=== PATIENT | female | born 1945 | race Caucasian/White ===

== ENCOUNTER 2019-01-30 11:14 | Emergency (ER) | payer MEDICARE ==
[~2019-01-30] VITALS: Ht 167.6 cm; Wt 81.0 kg
[2019-01-30] MEDS ORDERED: LOSA50TA88 (11:34)
[2019-01-30] MEDS ORDERED: ASPI81TA85 PO (11:34)
[2019-01-30] MEDS ORDERED: HYDR25TAB (11:34)
[2019-01-30] MEDS ORDERED: SIMV10TA2 (11:34)
[2019-01-30 12:31] VITALS: BP 152/94
--- NOTE | 2019-01-30 14:20 | REP ---
CT Head without contrast HISTORY: Trauma COMPARISON: None There is no intraparenchymal hemorrhage, acute infarct, mass or midline shift. The ventricular system is normal in appearance. There is no extra cerebral collection. There is no fracture. 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 The visualized sinuses are clear. IMPRESSION: There is no intracranial lesion. Electronically Signed by Red Dey MD 01/30/2019 02:11 P
--- NOTE | 2019-01-30 14:26 | REP ---
CT cervical spine without contrast HISTORY: Trauma COMPARISON: None There is no acute fracture or subluxation. Disc bulges are present at the C2-3 and C4-5 levels. Disc bulges with associated osteophyte formation are present at the C3-4 and C5-6 levels. There is minimal narrowing of the spinal canal. Uncinate process and/or facet hypertrophy are present at the C2-3 through C6-7 levels. These findings produce minimal to mild narrowing of the neural foramina. The C3-4 through C6-7 intervertebral discs are decreased in height consistent with disc degeneration. There are 2 mm of anterior subluxation of C6 on 7. 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 IMPRESSION: 1. There is no acute fracture or subluxation. 2. There is cervical spondylosis at the C2-3 through C6-7 levels. Electronically Signed by Red Dey MD 01/30/2019 02:17 P
--- NOTE | 2019-01-30 14:51 | REP ---
RIGHT SHOULDER, COMPLETE: 01/30/2019. Clinical history: Trauma, patient fell last evening. Right shoulder and lower arm pain. States she had rotator cuff surgery 4 months ago. Findings: No prior study. AC joint shows no widening or elevation of the clavicle in relationship to the acromion, only minimal acromial spur. No clavicular fracture, ribs and scapula fracture. Humeral head without subluxation or dislocation. There is no visible or displaced fracture, avulsion or abnormal soft-tissue calcification. Impression: 1. Some minor degenerative changes about the shoulder but no visible or displaced fracture, avulsion, abnormal soft-tissue calcification, subluxation or other acute finding. Electronically Signed by Claude Soto MD 01/30/2019 09:55 P
--- NOTE | 2019-01-30 14:52 | REP ---
RIGHT FOREARM: 01/30/2019. Clinical history: Trauma, patient fell last evening. Forearm pain. Two views of the forearm show radius, ulna and articulations without fracture, subluxation or dislocation. Minor degenerative changes at the wrist and elbow. No avulsion, radiopaque foreign body or other acute bony finding. Impression: 1. Some degenerative changes at the wrist and elbow without visible or displaced fracture, avulsion or other acute bony finding of the forearm. Electronically Signed by Claude Soto MD 01/30/2019 09:55 P
--- NOTE | 2019-01-30 15:04 | REP ---
RIGHT WRIST, FOUR VIEWS: HISTORY: Trauma. There is no acute fracture or dislocation. There is narrowing of the 1st carpometacarpal joint space with associate osteophyte formation. The bony structure is osteopenic. IMPRESSION: There is no acute fracture or dislocation. Electronically Signed by Red Dey MD 01/30/2019 03:11 P
== END 2019-01-30 15:22 | disposition home or self-care (01) ==
LOC: M ED 11:14
DX: S43.401A Unspecified sprain of right shoulder joint, initial encounter (principal); W00.0XXA Fall on same level due to ice and snow, initial encounter; Y92.018 Other place in single-family (private) house as the place of occurrence of the external cause; I10 Essential (primary) hypertension; Z79.899 Other long term (current) drug therapy; Z79.82 Long term (current) use of aspirin; Z88.5 Allergy status to narcotic agent
CPT/HCPCS: 70450; 72125; 73030; 73090; 73110; 99283; G0463

== ENCOUNTER → 2020-10-14 | Outpatient (CLI) | payer MEDICARE ==
[~2020-10-14] MED LIST: ASPI81TA86 PO; HYDR25TAB; LOSA50TA88; SIMV10TA21
--- NOTE | 2020-10-14 09:58 | REP ---
INDICATION: OSEOARTHRITIS RIGHT KNEE- ALSO LABS AND EKG COMPARISON: None. TECHNIQUE: PA and lateral. FINDINGS: The mediastinum and cardiac silhouette are normal. The lung antonio demonstrate suspected biapical scarring (right greater than left). No acute consolidation, effusion, or pneumothorax. Surgical clips identified within the right breast. The skeletal structures are intact and degenerative changes to the right shoulder noted. IMPRESSION: No acute cardiopulmonary process. As above. <Electronically signed by Edis Arevalo > 10/14/20 0933
[2020-10-14 10:00] LABS: HEMOGLOBIN 13.1 g/dl (12.0-15.5); MEAN CORPUSCULAR HEMOGLOBIN 27.7 pg (27.0-33.0); MEAN CORPUSCULAR VOLUME 86.7 fl (80.0-96.0); PLATELET COUNT, AUTOMATED 356 10^3/uL (150-450); RED BLOOD COUNT 4.73 10^6/uL (4.00-5.40); WHITE BLOOD COUNT 6.9 10^3/uL (4.0-10.0)
[2020-10-14 10:12] LABS: INR 0.9; PROTHROMBIN TIME 12.3 SECONDS (12.5-14.3)
[2020-10-14 10:42] LABS: ERYTHROCYTE SEDIMENTATION RATE 20 mm/hr (0-30)
[2020-10-14 11:05] LABS: ALBUMIN 3.8 GM/DL (3.2-5.2); ALT/SGPT 17 U/L (12-78); BILIRUBIN,TOTAL 0.4 MG/DL (0.2-1.0); BLOOD UREA NITROGEN 21 MG/DL (7-18); CALCIUM LEVEL 9.8 MG/DL (8.8-10.2); CARBON DIOXIDE LEVEL 27 MEQ/L (21-32); CHLORIDE LEVEL 104 MEQ/L (98-107); CREATININE FOR GFR 0.74 MG/DL (0.55-1.30); GLOMERULAR FILTRATION RATE > 60.0 (>39); GLUCOSE, FASTING 86 MG/DL (70-100); POTASSIUM SERUM 4.1 MEQ/L (3.5-5.1); SODIUM LEVEL 139 MEQ/L (136-145); TOTAL PROTEIN 7.2 GM/DL (6.4-8.2)
--- NOTE | 2020-10-14 19:30 | ECGEPIP ---
[facility] Test Date: 2020-10-14 Pat Name: KATERINA GONZALEZ Department: Room: - Gender: Female Lead C Developer: RAMÓN : 1945 Requested By: Roberta Yost Order Number: [id number] Reading MD: Melisa Condon Measurements Intervals [place] Rate: 67 P: 67 ME: 182 QRS: 58 QRSD: 90 T: 33 QT: 409 QTc: 433 Interpretive Statements SINUS RHYTHM MODERATE VOLTAGE CRITERIA FOR LVH, CONSIDER NORMAL VARIANT NONSPECIFIC T-WAVE ABNORMALITY NO PRIOR Electronically Signed on 10-14-2020 19:30:08 EST by Melisa Condon
== END ==
LOC: M LAB 08:41
PROVIDERS: ATTEND Orthopaedic Surgery
DX: Z01.818 Encounter for other preprocedural examination (principal); M17.11 Unilateral primary osteoarthritis, right knee; R94.31 Abnormal electrocardiogram [ECG] [EKG]; Z88.3 Allergy status to other anti-infective agents; Z88.5 Allergy status to narcotic agent; Z88.8 Allergy status to other drugs, medicaments and biological substances

== ENCOUNTER → 2020-11-06 | Outpatient (CLI) | payer MEDICARE ==
[~2020-11-06] MED LIST changes: +ASPI81CH33 PO; +CALC600T60 PO; +ECOT81TA5 PO; -HYDR25TAB; +HYDR25TAB PO; -LOSA50TA88; +LOSA50TA88 PO; +PERC5TAB12 PO; -SIMV10TA21; +SIMV10TA21 PO; +VITA-55 PO; +VITAD400CA PO
== END ==
LOC: M LABSMTC 09:57
PROVIDERS: ATTEND Anesthesiology
DX: Z11.59 Encounter for screening for other viral diseases (principal)

== ENCOUNTER 2020-11-11 07:05 | Inpatient (IN) | payer MEDICARE ==
--- NOTE | 2020-11-10 10:59 | HPE ---
HISTORY AND PHYSICAL DATE OF ADMISSION: 11/11/2020 ATTENDING PHYSICIAN: Dr. Howe. CHIEF COMPLAINT: Right knee pain and stiffness. HISTORY OF PRESENT ILLNESS: The patient is a pleasant 74-year-old female with progressively worsening right knee pain and stiffness. She failed to improve with conservative measures. She continues to have symptoms with weightbearing activities and activities of daily living. She has consented for an elective right total knee arthroplasty with Dr. Howe for her continued symptoms. Medical optimization pending with her PCM. CURRENT MEDICATIONS: 1. Losartan 50 mg daily. 2. Hydrochlorothiazide 25 mg daily. 3. Simvastatin 5 mg daily. 4. Aspirin 81 mg daily. 5. Vitamin D. 6. Vitamin E. 7. Calcium daily. ALLERGIES: Neosporin, codeine and ANDRE inhibitors. CHRONIC MEDICAL CONDITIONS: 1. Hypertension. 2. Hyperlipidemia. PAST SURGICAL HISTORY: 1. Right shoulder rotator cuff repair. SOCIAL HISTORY: The patient denies smoking and rarely uses alcohol. She lives at home with . REVIEW OF SYSTEMS: The patient denies fevers, chills, nausea, vomiting or diarrhea. She denies chest pain, shortness of breath, lightheadedness, dizziness or headaches. She denies any recent upper respiratory or urinary tract infection symptoms. Denies any abdominal pain. The patient does continue to have right knee pain with weightbearing activities and activities of daily living. PHYSICAL EXAMINATION: GENERAL: Well-nourished, well-developed female in no apparent distress. She is alert, oriented, and cooperative. Mood and affect are appropriate. VITAL SIGNS: Height 64.5 inches, weight 175 pounds, temperature 97.3. Blood pressure 136/88, heart rate is 76, respirations are 16. HEART: Regular rate and rhythm. LUNGS: Clear to auscultation bilaterally. Breathing is regular and unlabored. ABDOMEN: Soft and nontender to palpation. Bowel sounds are present. NECK: Supple without lymphadenopathy. MUSCULOSKELETAL: Right knee exhibits no erythema, edema or ecchymosis. SKIN: Intact. EXTREMITIES: There is tenderness along the medial and lateral joint lines. Patient can extend the knee to about 5 degrees and flex to 100 degrees. Right lower extremity strength is 5/5. No hip irritability elicited with range of motion testing. Calf is soft and nontender without evidence of DVT. She is neurovascularly intact distally. Patient is not using any assistive devices for ambulation and does have a limp favoring the right lower extremity. LABORATORY DATA: Chest x-ray: No acute cardiopulmonary process. Right knee x-ray notable for endstage degenerative changes. EKG: Sinus rhythm with moderate voltage criteria for LVH. Nonspecific T-wave abnormality. Comprehensive metabolic profile: Fasting glucose 86, BUN elevated at 21, creatinine 0.74, GFR greater than 60. Sodium 139, potassium 4.1, chloride 104, carbon dioxide 27. Anion gap 8. Calcium is 9.8. AST is 20. ALT is 17. Alkaline phosphatase is 117. Total bilirubin 0.4. Total protein 7.2. Albumin 3.8. Albumin globulin ratio decreased at 1.1. pro-Thrombin time 12.3. INR 0.90. Complete blood count: WBC is 6.9, RBC is 4.73, hemoglobin 13.1, hematocrit 41, platelets are 356,000. Erythrocyte sedimentation rate is 20. IMPRESSION: 1. Right knee degenerative arthritis with x-rays notable for endstage degenerative changes. PLAN: Patient has consented for an elective right total knee arthroplasty with Dr. Howe for continued symptoms. Medical optimization pending with her PCM. Patient is using her Bactroban and Hibiclens as directed. She will be NPO after midnight the night prior to surgery. She will follow her primary career portals teacher's recommendations on how to take her daily medications and when to stop anticoagulants if applicable. Patient has completed her COVID testing. She will call [facility] tomorrow afternoon to get a report time for her surgical date. DAISY
[2020-11-11] VITALS (7 sets, daily range): BP systolic 128–147; BP diastolic 68–87
[~2020-11-11] VITALS: Ht 165.1 cm; Wt 77.9 kg
[~2020-11-11 07:05] MED LIST changes: +ACETAMINOPHEN 500 MG TAB PO ONE; -ECOT81TA5 PO; -PERC5TAB12 PO; +ceFAZolin SOD 2 GM in IV 1 EA IV ONE; +fentaNYL 100 MCG/2 ML INJECTION (J3010) IV PRN
[2020-11-11] MEDS ORDERED: fentaNYL 100 MCG/2 ML INJECTION (J3010) As Ordered ONE ×2 (08:11→08:47)
[2020-11-11] MEDS ORDERED: propofoL 200 MG/20 ML VIAL As Ordered ONE (08:11)
[2020-11-11] MEDS ORDERED: dexameTHASONE 10MG/1ML VIAL PRES.FREE (J1100 PER 1MG) As Ordered ONE (08:47)
[2020-11-11] MEDS ORDERED: ROPIvacaine 0.5% 30ML INJECTION (J2795 PER 1MG) As Ordered ONE (08:47)
[2020-11-11] MEDS ORDERED: EPINEPHrine INJ 1 MG/ML 1ML AMP As Ordered ONE ×2 (08:47→09:47)
[2020-11-11] MEDS ORDERED: MIDAZOLAM INJ 2MG/2ML VIAL (J2250 PER 1MG) As Ordered ONE ×2 (08:47→09:57)
[2020-11-11] MEDS ORDERED: ROPIvacaine 0.5% 30ML INJECTION (J2795 PER 1MG) XX ONE (09:00)
[2020-11-11] MEDS: MIDAZOLAM INJ 2MG/2ML VIAL (J2250 PER 1MG) IV PRN ×2 (09:01→09:07)
[2020-11-11] MEDS ORDERED: TRANEXAMIC ACID 100 MG/ML 10ML VIAL As Ordered ONE (09:46)
[2020-11-11] MEDS ORDERED: BUPIVACAINE HCL 0.25% 10ML VIAL As Ordered ONE (09:47)
[2020-11-11] MEDS ORDERED: BUPIVACAINE LIPOSOME/PF 1.3% 20ML VIAL (13.3MG/ML)(EXPAREL)(C9290 PER1MG) As Ordered ONE (09:47)
[2020-11-11] MEDS ORDERED: ceFAZolin 1GM VIAL (J0690 PER 500MG) As Ordered ONE (09:47)
[2020-11-11] MEDS ORDERED: PHENYLephrine HCL 500 MCG/5 ML (100MCG/ML) SYRINGE (J2370) As Ordered ONE (10:17)
[2020-11-11] MEDS ORDERED: ePHEDrine SULFATE 25 MG/5 ML(5MG/ML) SYRINGE As Ordered ONE (10:17)
[2020-11-11] MEDS ORDERED: LR 1,000 ML IV SCH ×2 (12:00→12:15)
[2020-11-11] MEDS ORDERED: MORPHINE 2 MG/ML 1ML VIAL (J2270) IV PRN ×2 (12:00→12:15)
[2020-11-11] MEDS ORDERED: ONDANSETRON 4MG/2ML VIAL IV PRN ×2 (12:00→12:15)
[2020-11-11] MEDS ORDERED: fentaNYL 100 MCG/2 ML INJECTION (J3010) IV PRN (12:00)
[2020-11-11] MEDS ORDERED: oxyCODONE 5MG TAB PO PRN (12:00)
[2020-11-11] MEDS ORDERED: METOCLOPRAMIDE INJ 10MG/2ML VIAL (J2765 PER 1) IV PRN (12:00)
[2020-11-11] MEDS ORDERED: LR 1,000 ML IV ONE (12:00)
[2020-11-11] MEDS ORDERED: MORPHINE 4 MG/ML 1ML VIAL/SYRINGE (J2270) IV PRN (12:15)
--- NOTE | 2020-11-11 12:23 | REP ---
INDICATION: S/P Total COMPARISON: None. TECHNIQUE: AP and cross-table lateral views. FINDINGS: Normal appearance and positioning to the femoral and tibial components. Overlying postsurgical changes and skin alonso noted. IMPRESSION: Status post right knee replacement. Satisfactory positioning. <Electronically signed by Edis Arevalo > 11/11/20 1150
[2020-11-11] MEDS ORDERED: EPINEPHrine INJ 1 MG/ML 1ML AMP XX ONE (12:30)
[2020-11-11] MEDS ORDERED: dexameTHASONE 10MG/1ML VIAL PRES.FREE (J1100 PER 1MG) XX ONE (12:30)
--- NOTE | 2020-11-11 12:52 | RO ---
OPERATIVE NOTE DATE OF OPERATION: 11/11/2020 PREOPERATIVE DIAGNOSIS: Right knee degenerative arthritis. POSTOPERATIVE DIAGNOSIS: Right knee degenerative arthritis. PROCEDURE: Right total knee arthroplasty using a size 5 cruciate-retaining cemented femoral component with a size 5 tibial tray, 8 mm rotating platform polyethylene insert, and a 35-mm polyethylene button. All components were cemented. Prosthesis was made by [employer]. It was an Attune knee. SURGEON: Roberta Howe M.D. CLAM SORTER: Nhi Koch PA-C ANESTHESIA: Right femoral nerve block and spinal. COMPLICATIONS: None. ESTIMATED BLOOD LOSS: 20 mL. SPECIMEN: Joint surface. DESCRIPTION OF PROCEDURE: Antibiotics were given intravenously preoperatively. A right femoral nerve block was established and then a spinal anesthetic was established. A tourniquet was then placed around the right upper thigh and not inflated. The right lower extremity was carefully prepped and draped in the usual sterile fashion and elevated. After an appropriate time-out, the tourniquet was inflated. A longitudinal incision was made from a medial parapatellar approach to the knee. Bovee cautery was used to coagulate crossing vessels. A medial parapatellar arthrotomy was performed. Subperiosteal dissection along the proximal medial and lateral tibial plateau was performed and then we everted the patella, flexed the knee, and debrided the ACL. Drill was placed down the center of the femoral canal followed by the intramedullary rosi and a distal femoral cutting jig set at 5 degrees valgus cut at 9 mm resection level for a right knee. The block was pinned into position and distal femoral cut performed. AP sizing jig measured for a size 5. Then 3-degrees external rotation was dialed in and pins placed followed by the 4:1 block, and then anteroposterior chamfer cut was performed. The sulcus osteotomy was thus performed after applying the jig. We then exposed the proximal tibia and used the extramedullary alignment jig to estimate being parallel with the mechanical axis of the tibia, referencing off the medial tibial condyle at 4 mm resection level. It was pinned into position and a secondary check with the extramedullary rosi confirmed that we appeared to be parallel to the mechanical axis. Thus, a proximal tibial osteotomy was performed. The lam[employer] leather [employer] ii assembler was then placed medially and we performed the completion of the lateral meniscectomy debriding the posterolateral osteophytes. We then placed the [employer] ii assembler laterally and performed a completion medial meniscectomy debriding the posteromedial osteophytes. The sizing blocks were trialed. The 6 mm was a bit loose both in flexion and extension. Thus, I trialed up to an 8 and she had excellent stability with varus and valgus AP stress testing. We then exposed the proximal tibia and sized for a #5 tray, which was pinned into position followed by the reamer and the broach. Then, the trial 8 mm polyethylene was placed followed by the trial femoral component. We brought the knee to extension, everted the patella, and performed the patellar osteotomy sized for a 35 button. Lug holes were drilled, the trial was placed, and the patellofemoral tracking was anatomic. She had good stability both in flexion and extension. Thus, I drilled the lug holes through the femur, removed all the trial components, and then applied Exparel into the subperiosteal tissues around the distal femur and the proximal tibia. I then began copious pulsatile lavage irrigating out the knee joint as my project construction assistant manager, Ms. Nhi Koch, mixed the cement on the back table as I prepared the bony surfaces for cementing. She was also critical to the success of this difficult procedure by applying appropriate soft tissue retraction, flexing and extending the knee, helping to mix the cement, helping to close the wound, and helping to prepare the patient amongst many other tasks to allow me to perform my operation smoothly, efficiently, and safely. Once all the bony surfaces were thoroughly dried we cemented the tibial tray and removed excess cement. We then cemented the femoral component and removed excess cement. Polyethylene was inserted and we brought the knee to extension. We cemented the patella button, removing excess cement, and held the knee in full extension with a clamp on the patella until the cement hardened. As we were awaiting the cement to harden, we copiously irrigated out the knee joint once again and placed tranexamic acid into the wound. We then began closing the apex of the arthrotomy with two #1 PDS sutures. The medial parapatellar area was closed with #1 PDS suture and then a running double-arm STRATAFIX used to close the capsule. The tourniquet was then released. We then irrigated the subdermal tissues and then closed them with interrupted 2-0 PDS sutures. The skin was closed with alonso covered by an Optifoam dry sterile bulky dressing. The patient was then transferred to the recovery room in stable condition. There were no intraoperative complications. [facility]
[2020-11-11] MEDS: ACETAMINOPHEN TAB 650MG DOSE (2X325MG) PO PRN (13:15)
[2020-11-11 15:34] LABS: HEMATOCRIT 34.6 % (36.0-47.0); HEMOGLOBIN 11.1 g/dl (12.0-15.5); MEAN CORPUSCULAR HEMOGLOBIN 26.9 pg (27.0-33.0); MEAN CORPUSCULAR HGB CONC 32.1 g/dl (32.0-36.5); PLATELET COUNT, AUTOMATED 312 10^3/uL (150-450); RED BLOOD COUNT 4.12 10^6/uL (4.00-5.40); WHITE BLOOD COUNT 14.1 10^3/uL (4.0-10.0)
[2020-11-11 15:55] LABS: ALBUMIN 3.5 GM/DL (3.2-5.2); ALT/SGPT 19 U/L (12-78); BILIRUBIN,TOTAL 0.2 MG/DL (0.2-1.0); BLOOD UREA NITROGEN 21 MG/DL (7-18); CALCIUM LEVEL 9.1 MG/DL (8.8-10.2); CARBON DIOXIDE LEVEL 25 MEQ/L (21-32); CHLORIDE LEVEL 106 MEQ/L (98-107); CREATININE FOR GFR 0.64 MG/DL (0.55-1.30); GLOMERULAR FILTRATION RATE > 60.0 (>39); GLUCOSE, FASTING 132 MG/DL (70-100); PHOSPHORUS LEVEL 3.4 MG/DL (2.5-4.9); POTASSIUM SERUM 3.4 MEQ/L (3.5-5.1); SODIUM LEVEL 139 MEQ/L (136-145); TOTAL PROTEIN 6.5 GM/DL (6.4-8.2)
--- NOTE | 2020-11-11 17:47 | CR.PDOC ---
General Date of Consultation: Nov 11, 2020 Consultation REASON FOR CONSULTATION/CHIEF COMPLAINT: Medical management HISTORY OF PRESENT ILLNESS: Patient is 74 years old female with past mental history of hypertension, hyperlipidemia, osteoarthritis presented hospital for an elective right knee surgery. The surgery was done on 11/11/20. Patient tolerates procedure well. Patient denied fever, shortness of breath, palpitations, chills, nausea, vomiting, diarrhea or dysuria ALLERGIES: Please see below. HOME MEDICATIONS: Please see below. PAST MEDICAL HISTORY: 1. Hypertension. 2. Hyperlipidemia. PAST SURGICAL HISTORY: Right shoulder rotator cuff repair. FAMILY HISTORY: I personally reviewed family history and found not pertinent SOCIAL HISTORY: No alcohol, drug abuse or smoking history REVIEW OF SYSTEMS: 10 point review system negative except as listed above PHYSICAL EXAMINATION: Objective: GENERAL APPEARANCE: NAD HEENT: no scleral icterus, no JVD, EOMI CARDIOVASCULAR: S1S2 LUNGS: CTA ABDOMEN: soft & not tender w palpitation MUSCULOSKELETAL: no cyanosis, no swelling INTEGUMENT: no generalized palor NEUROLOGICAL: cranial nerve function from 2-12 intact intact, follows commands, speech not dysarthric LABORATORY DATA: Please see below. ASSESSMENT/PLAN: Hypertension Blood pressures under control Continue home cardioprotective medication Hyperlipidemia Continue statin Status post right knee repair Pain management Anticoagulation per Ortho team Ortho team follows her Vital Signs/I&O Vital Signs Date Time Temp Pulse Resp B/P (MAP) Pulse Ox O2 Delivery O2 Flow Rate FiO2 11/11/20 16:00 96.0 73 18 135/80 (98) 96 Room Air 11/11/20 09:45 3 Laboratory Data Labs 24H Laboratory Tests 2 11/11/20 15:23: Nucleated Red Blood Cells % (auto) 0.0, Anion Gap 8, Glomerular Filtration Rate > 60.0, Calcium Level 9.1, Phosphorus Level 3.4, Total Bilirubin 0.2, Aspartate Amino Transf (AST/SGOT) 13, Alanine Aminotransferase (ALT/SGPT) 19, Alkaline Phosphatase 104, Total Protein 6.5, Albumin 3.5, Albumin/Globulin Ratio 1.2 CBC/BMP Laboratory Tests 11/11/20 15:23 Allergies Coded Allergies: ANDRE Inhibitors (Verified Adverse Reaction, Mild, cough, 11/04/20) bacitracin (Verified Adverse Reaction, Mild, itching, 11/04/20) codeine (Verified Adverse Reaction, Mild, sick to stomach, 11/04/20) neomycin (Verified Adverse Reaction, Mild, itching, 11/04/20) polymyxin B (Verified Adverse Reaction, Mild, itching, 11/04/20) Home Medications Scheduled Aspirin (Aspirin) 81 Mg Tab.chew, 81 MG PO DAILY, (Reported) Calcium Carbonate (Calcium) 600 Mg Tablet, 600 MG PO DAILY, (Reported) Hydrochlorothiazide (Hydrochlorothiazide) 25 Mg Tab, 25 MG PO DAILY, (Reported) Losartan Potassium (Losartan Potassium) 50 Mg Tab, 50 MG PO DAILY, (Reported) Simvastatin (Simvastatin) 10 Mg Tab, 10 MG PO DAILY, (Reported) Vitamin D (Vitamin D3) 10 Mcg Tablet, 400 MCG PO DAILY, (Reported) Vitamin E (Dl,Tocopheryl Acet) (Vitamin E) 400 Unit Capsule, 400 UNIT PO DAILY, (Reported) LARA PUGA DO Nov 11, 2020 17:46
[2020-11-11] MEDS: ceFAZolin SOD 2 GM in IV 1 EA IV SCH (17:58)
[2020-11-11] MEDS: PERCOCET 5MG/325MG TAB PO PRN (20:45)
[2020-11-12] MEDS ORDERED: UNRESOLVED CLARIFICATION ENTRY XX SCH (00:01)
[2020-11-12] MEDS: ceFAZolin SOD 2 GM in IV 1 EA IV SCH ×3 (02:13→18:01)
[2020-11-12] MEDS: PERCOCET 5MG/325MG TAB PO PRN ×3 (02:13→14:45)
[2020-11-12 06:00] VITALS: BP 144/79
[2020-11-12] MEDS ORDERED: ECOT81TA5 PO (06:17)
[2020-11-12] MEDS ORDERED: PERC5TAB12 PO (06:17)
[2020-11-12] MEDS: ACETAMINOPHEN TAB 650MG DOSE (2X325MG) PO PRN (06:20)
[2020-11-12 07:34] LABS: HEMATOCRIT 30.8 % (36.0-47.0); MEAN CORPUSCULAR HEMOGLOBIN 27.3 pg (27.0-33.0); MEAN CORPUSCULAR HGB CONC 32.5 g/dl (32.0-36.5); MEAN CORPUSCULAR VOLUME 84.2 fl (80.0-96.0); PLATELET COUNT, AUTOMATED 260 10^3/uL (150-450); RED BLOOD COUNT 3.66 10^6/uL (4.00-5.40); WHITE BLOOD COUNT 9.3 10^3/uL (4.0-10.0)
[2020-11-12 08:18] LABS: ALT/SGPT 17 U/L (12-78); BILIRUBIN,TOTAL 0.4 MG/DL (0.2-1.0); BLOOD UREA NITROGEN 17 MG/DL (7-18); CALCIUM LEVEL 8.5 MG/DL (8.8-10.2); CARBON DIOXIDE LEVEL 27 MEQ/L (21-32); CHLORIDE LEVEL 105 MEQ/L (98-107); CREATININE FOR GFR 0.61 MG/DL (0.55-1.30); GLOMERULAR FILTRATION RATE > 60.0 (>39); GLUCOSE, FASTING 97 MG/DL (70-100); PHOSPHORUS LEVEL 2.5 MG/DL (2.5-4.9); POTASSIUM SERUM 3.5 MEQ/L (3.5-5.1); SODIUM LEVEL 139 MEQ/L (136-145); TOTAL PROTEIN 5.9 GM/DL (6.4-8.2)
[2020-11-12 08:32] VITALS: BP 138/76
[2020-11-12] MEDS ORDERED: SIMVASTATIN 10 MG TAB PO SCH (09:00)
[2020-11-12] MEDS ORDERED: ASPIRIN 81 MG ENTERIC TAB PO SCH (09:00)
[2020-11-12] MEDS ORDERED: MIRALAX *UNIT DOSE* 17GM PACKET PO SCH (09:00)
[2020-11-12] MEDS ORDERED: LOSARTAN 50MG TABLET PO SCH (09:00)
[2020-11-12] MEDS ORDERED: VITAMIN E 400 INTERNATIONAL UNITS CAP PO SCH (09:00)
[2020-11-12] MEDS ORDERED: hydroCHLOROthiazide 25 MG TAB PO SCH (09:00)
[2020-11-12 14:00] VITALS: BP 131/67
--- NOTE | 2020-11-16 18:01 | DSES ---
DISCHARGE SUMMARY DATE OF ADMISSION: 11/11/2020 DATE OF DISCHARGE: 11/12/2020 ADMITTING DIAGNOSIS: Osteoarthritis, right knee. OTHER DIAGNOSES INCLUDE: 1. Hypertension. 2. Elevated lipids. DISCHARGE DIAGNOSIS: Osteoarthritis, right knee, status post right total knee arthroplasty. OPERATION PERFORMED: Right total knee arthroplasty. ATTENDING: Priyank Howe MD HISTORY: This is a 74-year-old female patient with progressively worsening right knee pain and stiffness who failed to improve with conservative management. She was admitted for elective knee replacement on the right side. HOSPITAL COURSE: The patient was admitted on the day of surgery and underwent a right total knee arthroplasty, which was uneventful. She did well in the postoperative period and the hospital course was without complications. She was up with physical therapy per their protocol. Her pain was controlled on the day of discharge. She was weightbearing as tolerated on her right lower extremity. She will use aspirin 81 mg twice a day per the deep venous thrombosis (DVT) protocol and she will also use MIAH stockings for 30 days postoperative for deep venous thrombosis (DVT) prophylaxis. She will resume her preoperative medications and diet. She will use oral pain medications for pain control. She was given instructions to include, but not limited to wound monitoring and activity limitations. Please refer to the medical record for further details. She will follow up in our office in 10 to 14 days. Priyank Howe MD
== END 2020-11-12 18:45 | disposition home or self-care (01) | DRG 470 ==
LOC: M OR 07:05 → M MS5PR 13:20
PROVIDERS: ADMIT Orthopaedic Surgery; ATTEND Orthopaedic Surgery
PROC: 0SRC0J9 Replacement of Right Knee Joint with Synthetic Substitute, Cemented, Open Approach (ICD-10-PCS; principal; 2020-11-11 10:10)
DX: M17.11 Unilateral primary osteoarthritis, right knee (principal); I10 Essential (primary) hypertension; E78.5 Hyperlipidemia, unspecified; Z79.899 Other long term (current) drug therapy; Z79.82 Long term (current) use of aspirin; Z88.5 Allergy status to narcotic agent; Z88.8 Allergy status to other drugs, medicaments and biological substances

== ENCOUNTER → 2022-10-21 | Outpatient (REF) | payer MEDICARE ==
[~2022-10-21] MED LIST changes: -ACETAMINOPHEN 500 MG TAB PO ONE; +ECOT81TA5 PO; +HYDR-3490 PO; -HYDR25TAB PO; +LOSA50TA28 PO; -LOSA50TA88 PO; +PERC5TAB12 PO; -ceFAZolin SOD 2 GM in IV 1 EA IV ONE; -fentaNYL 100 MCG/2 ML INJECTION (J3010) IV PRN
== END ==
LOC: M SFHCDERM 17:26
PROVIDERS: ATTEND Nurse Practitioner Family
DX: L82.1 Other seborrheic keratosis (principal)

== ENCOUNTER → 2025-06-20 | Outpatient (REF) | payer MEDICARE | LOC: M SFHCDERM 16:28 | PROVIDERS: ATTEND Nurse Practitioner Family | DX: L43.9 Lichen planus, unspecified (principal) ==